=== PATIENT | female | born 1970 | race African-American/Black ===

== ENCOUNTER 2017-04-26 21:23 | Emergency (ER) | payer OTHER ==
[2017-04-26 21:31] VITALS: TEMP 99.2; BMI 39.6
--- NOTE | 2017-04-26 22:01 | PDOC ---
History of Present Illness - General History Source: Patient Exam Limitations: No Limitations - History of Present Illness Initial Comments: 04/26/17 11:32 Patient is a 47-year-old female with history of asthma who presents with atraumatic, crampy, moderate to severe, intermittent left lower quadrant pain radiating to the left flank. Pain is 10 of 10 in the initial evaluation, not effectively controlled by ibuprofen. Patient denies nausea/vomiting/dysuria/ hematuria/vaginal bleeding. Patient has recently completed her regular menstrual period.Patient denies history of nephrolithiasis. REVIEW OF SYSTEMS CONSTITUTIONAL: No fever, no chills, no fatigue EYES: No visual changes ENT: No ear pain, no sore throat CARDIOVASCULAR: No chest pain, no palpitations RESPIRATORY: No cough, no SOB GI: + abdominal pain, no nausea, no vomiting, no constipation, no diarrhea GENITOURINARY: No dysuria, no frequency, no hematuria MUSKULOSKELETAL: No backpain, no joint pain, no myalgias SKIN: No rash NEURO: No headache EXAMINATION CONSTITUTIONAL: Well-appearing; well-nourished; in no apparent distress HEAD: Normocephalic; atraumatic EYES: PERRL; EOM intact ENMT: External appears normal; normal oropharynx NECK: Supple; non-tender; no cervical lymphadenopathy CARD: Normal S1, S2; no murmurs, rubs, or gallops RESP: Normal chest excursion with respiration; breath sounds clear and equal bilaterally; no wheezes, rhonchi, or rales ABD: Soft, non-distended; + mild llq and left flank tender; no palpable organomegaly, no palpable hernias EXT: Normal ROM in all four extremities; non-tender to palpation; distal pulses intact SKIN: Warm, dry, no rash NEURO: No focal neurological deficiencies. <Kevin Mcadmas - Last Filed: 04/27/17 01:41> <Ani Burk - Last Filed: 04/27/17 01:52> - General Chief Complaint: Pain Stated Complaint: PAIN, ACUTE Time Seen by Provider: 04/26/17 21:40 Past History - Past Medical History Asthma: Yes - Psycho/Social/Smoking Cessation Hx Suicidal Ideation: No Smoking History: Never smoked Have you smoked in the past 12 months: No Information on smoking cessation initiated: No <Kevin Mcadams - Last Filed: 04/27/17 01:41> <Ani Burk - Last Filed: 04/27/17 01:52> - Past Medical History Allergies/Adverse Reactions: Allergies Allergy/AdvReac Type Severity Reaction Status Date / Time No Known Allergies Allergy Verified 04/26/17 23:43 Home Medications: Ambulatory Orders Albuterol 0.083% Nebulizer Luz [Ventolin 0.083%] 1 neb NEB Q4H 05/16/16 Diazepam [Valium] 2 mg PO BID PRN #7 tablet MDD 2 05/16/16 Fluticasone Propionate [Flovent Diskus] 100 mcg IH ASDIR 05/16/16 *Physical Exam - Vital Signs Last Vital Signs Temp Pulse Resp BP Pulse Ox 99.2 F 104 H 20 152/84 97 04/26/17 21:29 04/26/17 21:29 04/26/17 21:29 04/26/17 21:29 04/26/17 21:29 <Kevin Mcadams - Last Filed: 04/27/17 01:41> - Vital Signs Last Vital Signs Temp Pulse Resp BP Pulse Ox 99.2 F 104 H 20 152/84 97 04/26/17 21:29 04/26/17 21:29 04/26/17 21:29 04/26/17 21:29 04/26/17 21:29 <Ani Burk - Last Filed: 04/27/17 01:52> ED Treatment Course - LABORATORY CBC & Chemistry Diagram: 04/26/17 22:31 04/26/17 22:31 <Kevin Mcadams - Last Filed: 04/27/17 01:41> - LABORATORY CBC & Chemistry Diagram: 04/26/17 22:31 04/26/17 22:31 - ADDITIONAL ORDERS Additional order review: Laboratory Results 04/26/17 04/26/17 04/26/17 23:43 22:31 22:31 INR 1.11 Sodium 137 Potassium 4.6 Chloride 102 Carbon Dioxide 26 Anion Gap 9 BUN 10 Creatinine 0.8 Creat Clearance w eGFR > 60 Random Glucose 99 Calcium 8.7 Total Bilirubin 0.5 AST 17 ALT 20 Alkaline Phosphatase 96 Total Protein 7.0 Albumin 3.8 Urine Color Straw Urine Appearance Clear Urine pH 6.0 Urine Protein Negative Urine Glucose (UA) Negative Urine Ketones 1+ H Urine Blood Negative Urine Nitrite Negative Urine Bilirubin Negative Urine Urobilinogen Negative Ur Leukocyte Esterase 1+ H Urine RBC <1 Urine WBC 4 Ur Epithelial Cells Rare Urine Bacteria Rare Hyaline Casts 1 Urine Mucus Rare Urine HCG, Qual Negative 04/26/17 22:31 RBC 4.23 MCV 84.9 MCHC 32.0 RDW 20.0 H MPV 8.3 Neutrophils % 77.0 Lymphocytes % 12.4 Monocytes % 6.5 Eosinophils % 3.4 Basophils % 0.7 - RADIOLOGY Radiograph Interpretation: 04/27/17 01:51 Health And Safety Advisor: ([email or web address]) Report Date: 04/26/2017 23:23:00 Report Status: Preliminary Begin of Report Content Referring Physician: Kevin Mcadams Patient Name: Tana Mosher This is a preliminary report by imaging human services professional Exam: Renal sonogram Images: 30 Clinical indication: Left flank pain. Rule out hydronephrosis. Findings: The right kidney has a normal appearance and echotexture measures 9 cm in length. No parenchymal mass, shadowing calculus or hydronephrosis is seen. The left kidney has a normal appearance and echotexture measures 9.8 cm in length. No parenchymal mass, shadowing calculus or hydronephrosis is seen. Impression: Normal appearance of both kidneys. THIS DOCUMENT HAS BEEN ELECTRONICALLY SIGNED Ulises Damico M.D. 04/27/2017 00:58 CRISSY Mcadams Please call Imaging Aquaculture Farmer [phone] with questions. End of Report Content Health And Safety Advisor: ([email or web address]) Report Date: 04/26/2017 23:11:00 Report Status: Preliminary Begin of Report Content Referring Physician: Kevin Mcadams Patient Name: Tana Mosher This is a preliminary report by imaging human services professional Exam: Transabdominal pelvic sonogram and duplex sonography Images: 28 Clinical indication: Left flank pain. Left lower quadrant pain. Rule out cysts. Findings: The uterus is anteverted and measures 12.3 x 6.1 x 7.5 cm. A fibroid seen anteriorly on the right measures up to 2.8 cm in diameter. The right ovary has a normal appearance and measures 2.2 x 2.2 x 1.3 cm and demonstrates arterial flow on color Doppler images. The left ovary measures 2 x 2.5 x 1.3 cm and demonstrates arterial flow on color Doppler images. No free fluid seen. Impression: Fibroid uterus. Normal appearance of the ovaries with normal vascular flow seen bilaterally. THIS DOCUMENT HAS BEEN ELECTRONICALLY SIGNED Ulises Damico M.D. 04/27/2017 01:00 CRISSY Mcadams Please call Imaging Aquaculture Farmer [phone] with questions. End of Report Content - Medications Given in the ED: ED Medications Discontinued Medications Generic Name Dose Route Start Last Admin Trade Name Sabrina PRN Reason Stop Dose Admin Sodium Chloride 1,000 mls @ 1,000 mls/hr 04/26/17 22:08 04/26/17 22:41 Normal Saline - IV 04/26/17 23:07 1,000 mls/hr ASDIR STA Administration Ketorolac Tromethamine 30 mg 04/26/17 22:09 04/26/17 22:41 Toradol Injection - IVPUSH 04/26/17 22:10 30 mg ONCE ONE Administration <Ani Burk - Last Filed: 04/27/17 01:52> Medical Decision Making - Medical Decision Making 04/27/17 01:37 Patient is well-appearing 47-year-old female with history of asthma who presents with atraumatic crampy left lower quadrant pain radiating to the left flank. In the ER, patient is awake and alert, afebrile, hemodynamically stable. CBC/CMP/UA within normal limit. Renal and pelvic ultrasound showed no evidence of hydronephrosis, nephrolithiasis, there is no evidence of ovarian cyst. A uterine fibroid is normal and noted. Patient has received IV fluids as well as Toradol with complete resolution of her discomfort. On reevaluation, abdomen is soft, nontender, nondistended, there is no guarding rebound. Patient is able tolerate by mouth. This time, I do not believe patients presentation is consistent with acute abdomen and she can be safely discharged. <Kevin Mcadams - Last Filed: 04/27/17 01:41> *DC/Admit/Observation/Transfer <Kevin Mcadams - Last Filed: 04/27/17 01:41> <Ani Burk - Last Filed: 04/27/17 01:52> Diagnosis at time of Disposition: Abdominal pain Qualifiers: Abdominal location: left lower quadrant Qualified Code(s): R10.32 - Left lower quadrant pain - Discharge Dispostion Disposition: HOME Condition at time of disposition: Stable - Referrals Referrals: Larissa Us MD [Primary Care Provider] - joy operator helper, one week [Other] - Patient Instructions Printed Discharge Instructions: DI for Abdominal Pain-Adult
[2017-04-26] MEDS ORDERED: SODIUM CHLORIDE 1,000 ML IV STA (22:08)
[2017-04-26] MEDS ORDERED: KETOROLAC TROMETHAMINE 30 MG/1 ML VIAL IVPUSH ONE (22:09)
[2017-04-26] MEDS ORDERED: KETOROLAC TROMETHAMINE 30 MG/1 ML VIAL ONE (22:39)
[2017-04-26 22:43] LABS: BASOPHIL 0.7 % (0-2.0); EOSINOPHIL 3.4 % (0-4.5); MCH 27.2 pg (25.7-33.7); MEAN CELL VOLUME 84.9 fl (80-96); MEAN PLT VOLUME 8.3 fl (7.5-11.1); PLATELET COUNT 222 K/MM3 (134-434); WHITE BLOOD COUNT 10.8 K/mm3 (4.0-10.0)
[2017-04-26 23:02] LABS: INR 1.11 (0.82-1.09); PROTHROMBIN TIME (PATIENT) 12.2 SEC (9.98-11.88)
[2017-04-26 23:14] LABS: ANISOCYTOSIS OCC; MICROCYTOSIS OCC; PLATELET ESTIMATE ADEQUATE (NORMAL)
[2017-04-26 23:26] LABS: ALBUMIN 3.8 g/dl (3.4-5.0); ANION GAP 9 (8-16); BILIRUBIN,TOTAL 0.5 mg/dL (0.2-1.0); CALCIUM 8.7 mg/dL (8.5-10.1); CO2 26 mmol/L (21-32); CREATININE 0.8 mg/dL (0.55-1.02); GLUCOSE,RANDOM 99 mg/dL (74-106); SGOT/AST 17 U/L (15-37); SGPT/ALT 20 U/L (12-78)
[2017-04-26 23:27] LABS: ALK PHOS 96 U/L (45-117)
[2017-04-27 00:04] LABS: URINE APPEARANCE CLEAR; URINE BILIRUBIN NEGATIVE (NEGATIVE); URINE BLOOD NEGATIVE (NEGATIVE); URINE COLOR STRAW; URINE GLUCOSE (UA) NEGATIVE (NEGATIVE); URINE KETONE 1+ (NEGATIVE); URINE NITRITE NEGATIVE (NEGATIVE); URINE PROTEIN NEGATIVE (NEGATIVE); URINE UROBILINOGEN NEGATIVE E.U./dl (0.2-1.0)
[2017-04-27 00:13] LABS: URINE LEUK ESTERASE 1+ (NEGATIVE)
[2017-04-27 00:26] LABS: URINE BACTERIA RARE /hpf (NONE SEEN); URINE HYALINE CAST 1 /lpf; URINE MUCUS RARE; URINE RBC <1 /hpf (0-3); URINE WBC 4 /hpf (3-5)
[2017-04-27 02:08] VITALS: BP 146/84; PULSE 89
== END 2017-04-27 02:08 | disposition home or self-care (01) ==
LOC: JER 21:23
PROC: 3E0333Z Introduction of Anti-inflammatory into Peripheral Vein, Percutaneous Approach (ICD-10-PCS; principal; 2017-04-26)
DX: R10.32 Left lower quadrant pain (principal); J45.909 Unspecified asthma, uncomplicated
CPT/HCPCS: 36415; 76775-TC; 76856-TC; 80053; 81003; 81015; 84703; 85025; 85610; 87040; 87086; 87186; 99283-25

== ENCOUNTER 2022-09-25 07:34 | Day surgery (SDC) | payer OTHER ==
[2022-09-22 15:30] VITALS: BMI 35.0
[2022-09-25 10:15] VITALS: BP 140/78; PULSE 62; RESP 19; TEMP 97.9
== END 2022-09-25 10:15 | disposition home or self-care (01) ==
LOC: FASU-ENDO 07:34
PROVIDERS: ATTEND Internal Medicine Gastroenterology
PROC: 0DJD8ZZ Inspection of Lower Intestinal Tract, Via Natural or Artificial Opening Endoscopic (ICD-10-PCS; principal; 2022-09-25 09:14)
DX: Z12.11 Encounter for screening for malignant neoplasm of colon (principal); K57.30 Diverticulosis of large intestine without perforation or abscess without bleeding
CPT/HCPCS: 81025